=== PATIENT | male | born 1955 | race Caucasian/White ===

== ENCOUNTER 2016-10-09 07:17 | Day surgery (SDC) ==
[2016-10-09 07:57] VITALS: TEMP 98.4
[2016-10-09] MEDS ORDERED: DIPRIVAN 20 ML VIAL IVP ONE (08:49)
[2016-10-09] MEDS ORDERED: VERSED ONE (08:49)
[2016-10-09 10:13] VITALS: BP 125/86
--- NOTE | 2016-10-09 14:49 | OP ---
PROCEDURE: COLONOSCOPY TO THE CECUM. ENDOSCOPIST: Star EDWARDS M.D. INDICATION: HISTORY OF ADENOMATOUS POLYPS. INSTRUMENT: [id number]. MEDICATION: PER ANESTHESIA. PROCEDURE: The patient was positioned for colonoscopy. The digital rectal exam was negative. The colonoscope was inserted through the anus and advanced under direct vision to the cecum. The cecum was identified using the ileocecal valve and the appendiceal orifice as landmarks. The scope was slowly withdrawn through an adequately prepped colon. Careful inspection is made of each colonic segment. Diverticula were noted scattered throughout the colon. Retroflex exam reveals hemorrhoids. No other abnormalities were noted. The patient tolerated the procedure without immediate complication. Withdrawal time 10 minutes 31 seconds. PLAN: 1. Suggest repeat colonoscopy in 5 years given his history of adenomatous polyps. CC: DR. LANNY BOWLES
== END 2016-10-09 10:15 | disposition home or self-care (01) ==
LOC: SURG 07:17
PROVIDERS: ATTEND Internal Medicine Gastroenterology
DX: Z09 Encounter for follow-up examination after completed treatment for conditions other than malignant neoplasm (principal); Z86.010 Personal history of colon polyps; K57.30 Diverticulosis of large intestine without perforation or abscess without bleeding; K64.9 Unspecified hemorrhoids